=== PATIENT | female | born 1940 | race Caucasian/White ===

== ENCOUNTER → 2017-07-29 | Outpatient (CLI) | payer MEDICARE | END | disposition home or self-care (01) | LOC: RAH 14:03 | PROVIDERS: ATTEND Family Medicine | DX: M41.86 Other forms of scoliosis, lumbar region (principal); M47.896 Other spondylosis, lumbar region; M43.16 Spondylolisthesis, lumbar region; M48.07 Spinal stenosis, lumbosacral region | CPT/HCPCS: 72148 ==

== ENCOUNTER → 2019-08-30 | Outpatient (CLI) | payer MEDICARE ==
[~2019-08-30] MED LIST: ACET1TAB12 PO; ASPI-1197 PO; ATOR80TA PO; BUPR150T3 PO; BUPR300T53 PO; ERGO2000 PO; ESCI20TA PO; LEVO50TA11 PO; LISI40TA4 PO; MULT-1337 PO
== END | disposition home or self-care (01) ==
LOC: OIH 14:52
PROVIDERS: ATTEND Internal Medicine
DX: I10 Essential (primary) hypertension (principal)
CPT/HCPCS: 71046

== ENCOUNTER 2019-09-05 07:17 | Day surgery (SDC) | payer MEDICARE ==
[2019-09-04 12:12] VITALS: BP 136/62
--- NOTE | 2019-09-04 17:34 | NUR ---
NOTIFIED DR. VENEGAS PT DID NOT OBTAIN MEDICAL CLEARANCE AT DR. BELCHER'S OFFICE, SPOKE TO PT STATES SHE WAS NOT AWARE SHE NEEDED CLEARANCE AND CXR. PT DID OBTAIN LABS AND EKG IN CHART. PER DR. VENEGAS NO MEDICAL CLEARANCE NEEDED OK TO PROCEED, HAVE CXR DONE IN HOLDING DOS.
[~2019-09-05] VITALS: Ht 167.6 cm; Wt 79.2 kg
[2019-09-05] VITALS (15 sets, daily range): BP systolic 133–155; BP diastolic 58–69
[~2019-09-05 07:17] MED LIST changes: -ACET1TAB12 PO; -BUPR150T3 PO
[2019-09-05] MEDS ORDERED: LACTATED RINGERS 1000ML 1,000 ML IV ONE (07:33)
[2019-09-05] MEDS ORDERED: BUPR300T53 PO (08:04)
[2019-09-05] MEDS ORDERED: BUPR150T3 PO (08:04)
[2019-09-05] MEDS ORDERED: BUPIVACAINE/EPI/PF 0.5% 30ML VIAL IJ ONE (08:05)
[2019-09-05] MEDS ORDERED: LIDOCAINE 1%-EPI 1:100,000 20 ML VIAL IJ ONE (08:05)
--- NOTE | 2019-09-05 08:05 | NUR ---
CLEARANCE DR. MCDONALD MADE AWARE OF NO CLEARANCE OBTAIN FROM PCP . EKG REVIEWED BY DR. MCDONALD. CHEST XRAY DONE. THIS AM. PER DR. MCDONALD OK TO PROCEED WITH PLANNED SURGERY. PT DENIES ANY CHEST PAIN, SOB. LEFT KNEE- WIPED WITH VICKI BY MARICEL
[2019-09-05] MEDS ORDERED: LIDOCAINE PF 2% 5ML ABBOJECT ONE (08:20)
[2019-09-05] MEDS ORDERED: DEXAMETHASONE SOD PHOSPHATE 10MG/ML 1ML VIAL ONE (08:20)
[2019-09-05] MEDS ORDERED: MIDAZOLAM HCL 1 MG/ML 2ML VIAL ONE (08:21)
[2019-09-05] MEDS ORDERED: PROPOFOL 10 MG/ML 20ML VIAL IV ONE (08:21)
[2019-09-05] MEDS ORDERED: FENTANYL CITRATE PF 50 MCG/1 ML 2ML VIAL ONE (08:21)
[2019-09-05] MEDS ORDERED: ONDANSETRON HCL 4 MG/2 ML VIAL ONE (08:21)
[2019-09-05] MEDS ORDERED: EPHEDRINE SULFATE 50 MG/ML AMPULE ONE (08:37)
[2019-09-05] MEDS ORDERED: ACET1TAB12 PO (09:28)
== END 2019-09-05 11:15 | disposition home or self-care (01) ==
LOC: DAH 07:17
PROVIDERS: ATTEND Orthopaedic Surgery Sports Medicine
DX: S83.242A Other tear of medial meniscus, current injury, left knee, initial encounter (principal); M94.262 Chondromalacia, left knee; I10 Essential (primary) hypertension; I25.10 Atherosclerotic heart disease of native coronary artery without angina pectoris; E03.9 Hypothyroidism, unspecified; Z79.82 Long term (current) use of aspirin; Z79.899 Other long term (current) drug therapy; Z90.710 Acquired absence of both cervix and uterus; Z98.890 Other specified postprocedural states; Z86.711 Personal history of pulmonary embolism; Z72.89 Other problems related to lifestyle; Z83.3 Family history of diabetes mellitus; Z82.49 Family history of ischemic heart disease and other diseases of the circulatory system; X50.9XXA Other and unspecified overexertion or strenuous movements or postures, initial encounter; Y93.89 Activity, other specified; Y92.89 Other specified places as the place of occurrence of the external cause; Y99.8 Other external cause status
CPT/HCPCS: 29881; 71045; A4215; A4221; A4222; A4223; A4649 ×3; A4663; A4930 ×2; J1100; J2001; J2250; J2405; J2704; J3010; J3490 ×3; J7120 ×2